=== PATIENT | female | born 1935 | race Caucasian/White ===

== ENCOUNTER 2016-04-10 12:48 | Inpatient (IN) | payer MEDICARE ==
--- NOTE | 2016-04-10 12:54 | ER Document Report ---
ED Medical Screen (RME) - General Stated Complaint: VOMITING Time seen by provider: 12:54 Mode of Arrival: Ambulatory Information source: Patient Notes: 80-year-old female complaining of epigastric abdominal burning pain for 3 days. It is causing her to be nauseous with vomiting. When she would vomit it with ease the pain a little. No history of pancreatitis. She's had appendectomy and cholecystectomy. She seems very uncomfortable. She has some tightness in her lower sternal area after she started vomiting. I have greeted and performed a rapid initial assessment of this patient. A comprehensive ED assessment, evaluation of the patient, analysis of test results , and completion of the medical decision making process will be contacted by additional ED providers. TRAVEL OUTSIDE OF THE [place] IN LAST 30 DAYS: No - Related Data Allergies/Adverse Reactions: No Known Allergies Allergy (Verified 04/10/16 12:58) Past Medical History - Past Medical History Cardiac Medical History: Reports: Hx Coronary Artery Disease, Hx Hypertension Denies: Hx Heart Attack Pulmonary Medical History: Reports: Hx Pneumonia Denies: Hx Asthma, Hx Bronchitis, Hx COPD Neurological Medical History: Denies: Hx Cerebrovascular Accident, Hx Seizures Musculoskeltal Medical History: Reports Hx Arthritis - RA Past Surgical History: Denies: Hx Pacemaker - Immunizations Hx Diphtheria, Pertussis, Tetanus Vaccination: No
[2016-04-10] MEDS ORDERED: ASPIRIN 81 MG TABLET, CHEWABLE PO ONE (12:59)
[2016-04-10] MEDS ORDERED: ONDANSETRON 4 MG TAB.RAPDIS PO ONE (13:01)
[2016-04-10 15:10] LABS: ABSOLUTE BASOPHILS # (AUTO) 0.1 10^3/uL (0.0-0.2); ABSOLUTE LYMPHOCYTES (AUTO) 3.8 10^3/uL (0.5-4.7); ABSOLUTE MONOCYTES (AUTO) 1.2 10^3/uL (0.1-1.4); BASOPHILS % (AUTO) 0.7 % (0-2); EOSINOPHILS % (AUTO) 0.3 % (0-6); HEMATOCRIT 40.8 % (36.0-47.0); HGB HCT DIFFERENCE 1.2; LYMPHOCYTES % (AUTO) 26.7 % (13-45); MEAN CORPUSCULAR HEMOGLOBIN 29.7 pg (27.0-33.4); MEAN CORPUSCULAR HGB CONC 34.2 g/dL (32.0-36.0); MEAN CORPUSCULAR VOLUME 87 fl (80-97); MONOCYTES % (AUTO) 8.3 % (3-13); RED CELL DISTRIBUTION WIDTH 13.5 % (11.5-14.0); WHITE BLOOD COUNT 14.1 10^3/uL (4.0-10.5)
[2016-04-10] MEDS ORDERED: METOCLOPRAMIDE HCL INJ/PF 10 MG/2 ML SDV IV ONE (15:17)
[2016-04-10] MEDS ORDERED: DIPHENHYDRAMINE HCL 50 MG/ML VIAL IV ONE (15:18)
[2016-04-10] MEDS ORDERED: NORMAL SALINE 1000 ML 1,000 ML IV ONE (15:18)
--- NOTE | 2016-04-10 15:18 | EKG REPORT ---
SEVERITY:- OTHERWISE NORMAL ECG - SINUS RHYTHM BORDERLINE RIGHT AXIS DEVIATION : Confirmed by: Miroslava Christy MD 10-Apr-2016 15:17:31
--- NOTE | 2016-04-10 15:18 | ER Document Report ---
ED GI/ - General Mode of Arrival: Ambulatory Information source: Patient TRAVEL OUTSIDE OF THE [place] IN LAST 30 DAYS: No - HPI Patient complains to provider of: Abdominal pain Associated symptoms: Other - See above <DEMETRI ROSALES - Last Filed: 04/10/16 16:20> <TAN BURGOS - Last Filed: 04/10/16 18:03> - General Chief Complaint: Abdominal Pain Stated Complaint: abdominal pain Notes: Patient is an 80 year old female who presents to the emergency department complaining of abdominal pain onset 1 week ago. Patient reports that she had shingles on her left side around and experienced a loss of appetite as well as a constant pain under her left breast bone and beneath her left shoulder blade that has subsided some with time but comes on intermittently and lasts a few minutes, patient states that there is no longer in pain just tightness in that area. Patient then developed her abdominal pain which she describes as a burning sensation which is constant and exacerbated by drinking water. About 3 days ago patient reports she began vomiting clear fluid after eating or drinking anything as well as experiencing diarrhea and nausea. Patient reports that vomiting relieves her abdominal pain for a short period of time. Patient denies blood in vomit, cough, sore throat, difficulty breathing, and burning while urinating. Patient saw her PCP last on 02/08 for her shingles , patient denies getting the shingles shot due to cost. PCP: Dr. Jeannine Vivas (DEMETRI ROSALES) - Related Data Allergies/Adverse Reactions: No Known Allergies Allergy (Verified 04/10/16 12:58) Past Medical History - General Information source: Patient - Social History Smoking Status: Current Every Day Smoker Chew tobacco use (# tins/day): No Frequency of alcohol use: None Drug Abuse: None Family History: Reviewed & Not Pertinent Patient has suicidal ideation: No Patient has homicidal ideation: No - Past Medical History Cardiac Medical History: Reports: Hx Coronary Artery Disease, Hx Hypercholesterolemia, Hx Hypertension Pulmonary Medical History: Reports: Hx Pneumonia Endocrine Medical History: Reports: Hx Diabetes Mellitus Type 2 Musculoskeltal Medical History: Reports Hx Arthritis - RA Past Surgical History: Reports: Hx Appendectomy, Hx Cholecystectomy, Hx Genitourinary Surgery - BLADDER TAC - Immunizations Hx Diphtheria, Pertussis, Tetanus Vaccination: Yes <DEMETRI ROSALES - Last Filed: 04/10/16 16:20> Review of Systems - Review of Systems Constitutional: No symptoms reported EENT: denies: Throat pain Cardiovascular: See HPI, Chest pain - tightness under left breastbone Respiratory: denies: Cough, Short of breath Gastrointestinal: See HPI, Abdominal pain, Diarrhea, Nausea, Vomiting. denies: Blood in vomit Genitourinary: denies: Burning Female Genitourinary: No symptoms reported Musculoskeletal: No symptoms reported Skin: No symptoms reported Hematologic/Lymphatic: No symptoms reported Neurological/Psychological: No symptoms reported -: Yes All other systems reviewed and negative <DEMETRI ROSALES - Last Filed: 04/10/16 16:20> Physical Exam - Vital signs Interpretation: Normal - General General appearance: Appears well - appears well hydrated, Alert - HEENT Head: Normocephalic, Atraumatic - Respiratory Respiratory status: No respiratory distress Chest status: Nontender Breath sounds: Wheezing - scattered Chest palpation: Normal - Cardiovascular Rhythm: Regular Heart sounds: Normal auscultation Murmur: No - Abdominal Inspection: Normal Distension: No distension Bowel sounds: Normal Tenderness: Nontender Organomegaly: No organomegaly - Back Back: Normal, Nontender - Extremities General upper extremity: Normal inspection General lower extremity: Normal inspection. No: Edema - Neurological Neuro grossly intact: Yes Cognition: Normal Orientation: AAOx4 Jordyn Coma Scale Eye Opening: Spontaneous Jordyn Coma Scale Verbal: Oriented Jordyn Coma Scale Motor: Obeys Commands Callands Coma Scale Total: 15 Speech: Normal - Psychological Associated symptoms: Normal affect, Normal mood - Skin Skin irregularity: Rash - faint, flat remnants of shingle rash underneath left arm <DEMETRI ROSALES - Last Filed: 04/10/16 16:20> Course - Laboratory Result Diagrams: 04/10/16 14:55 04/10/16 14:55 <DEMETRI ROSALES - Last Filed: 04/10/16 16:20> - Laboratory Result Diagrams: 04/10/16 14:55 04/10/16 14:55 <TAN BURGOS - Last Filed: 04/10/16 18:03> - Re-evaluation Re-evalutation: 04/10/16 17:53 Patient presented with nausea vomiting diarrhea for the last 3 days. She indicates that she is not on appetite is not able to keep anything down including fluids. She denies any fever. She denies any cough. Patient has been having pain on the left side of her chest and around her shoulder since she had shingles back in January. She said that the pain is constant. Sometimes she gets a sharp stabbing pain. She reports that other times it feels more like a tightness. This is all in the distribution of the shingles. She was not treated for shingles because she could not afford the medication. The patient is afebrile nontoxic appearing. Abdomen is soft and nontender with no peritoneal findings. Her symptoms of nausea vomiting and diarrhea seem most likely related to a viral enteritis. I do not feel CT of the abdomen is warranted as her abdomen is very soft and nontender. The chest pain that she describes has been constant for the last 2 months since she had shingles and unlikely to be related to acute coronary syndrome or other worrisome etiology. Patient is feeling improved after nausea medication and fluids. She indicates that she feels able to go home. She has tolerated fluids here in the emergency department. She's not had any further vomiting or diarrhea since she's been here. She does have a doctor's appointment on Tuesday for regular checkup and she will keep this appointment for follow-up from today's visit. 04/10/16 18:01 (TAN BURGOS) - Vital Signs Vital signs: Temp Pulse Resp BP Pulse Ox 98.1 F 77 12 114/95 H 96 04/10/16 14:12 04/10/16 12:55 04/10/16 14:12 04/10/16 12:55 04/10/16 14:12 (DEMETRI ROSALES) (TAN BURGOS) - Laboratory Laboratory results interpreted by me: 04/10/16 04/10/16 14:55 14:55 WBC 14.1 H Absolute Neutrophils 9.0 H Sodium 122.1 L Chloride 81 L (DEMETRI ROSALES) (TAN BURGOS) - EKG Interpretation by Me Additional EKG results interpreted by me: 04/10/16 17:55 Heart rate 66, normal sinus rhythm, rightward axis, normal intervals, no ST elevations, as interpreted by me. (TAN BURGOS) Discharge <DEMETRI ROSALES - Last Filed: 04/10/16 16:20> <TAN BURGOS - Last Filed: 04/10/16 18:03> - Discharge Condition: Stable Disposition: HOME, SELF-CARE Additional Instructions: Take the Pepcid twice daily as prescribed for the burning sensation you been getting after drinking. Take nausea medication as needed. Drink plenty of fluids to stay well hydrated. Monitor for fevers. Follow-up with her primary provider on Tuesday as already scheduled. Return to ED for chest pain, difficult to breathing, vomiting so not to keep down fluids, or any other worsening or concerning symptoms. Diarrhea Diarrhea means frequent, watery stools. There are many causes. Any problem that keeps the intestinal tract from absorbing water from the stool can lead to diarrhea. A sudden new diarrhea problem is usually caused by a virus, food sensitivity, toxic bacteria, or drugs. In this case, we expect the problem to go away soon. Testing is done only if you seem seriously ill from the diarrhea. If you have chronic diarrhea, or diarrhea that keeps coming back, we need to find out why. Chronic diarrhea can be due to inflammation of the bowels such as Crohn's disease or ulcerative colitis, food sensitivity such as intolerance to lactose or wheat protein, irritable bowel syndrome, and other problems. If your diarrhea is a significant problem but it's not clear why you have it, we' ll refer you to a specialist for further testing. During an episode of diarrhea, drink small amounts (two to six ounces) of clear liquids (soft drinks, sport drinks, herb teas, broth, etc). Take fluids frequently to prevent dehydration. It's usually not a problem to take mild anti- diarrhea medication such as Kaopectate or Pepto-Bismol. As the diarrhea eases, advance to small amounts of bland food (mashed potato, toast) for 24 hours. Call the physician if blood appears in your vomit or stool, if vomiting lasts longer than 24 hours, if the abdominal pain worsens or becomes localized to one area, if you develop high fever, or if you become lightheaded and weak. Vomiting Vomiting can be part of many illnesses. Most cases of vomiting are due to gastroenteritis, usually a viral infection in the intestinal tract. There is no specific treatment. The disease will end by itself. For now, the main danger to your child is dehydration. During the first few hours of the illness, give clear liquids, such as Pedialyte. Try to give small quantities frequently, such as a teaspoon of liquid every minute or about an ounce of fluids every five to ten minutes. Medications may be prescribed by the physician for special cases. After an hour or two of fluids without vomiting, add rice cereal, toast, applesauce, or bananas and other more solid foods to the clear liquids. Call the physician or go to the hospital if vomiting increases or blood appears in the bowel movement or vomitus; if your child fails to improve, or if signs of dehydration occur (no wet diapers for eight to twelve hours, tongue and mouth become dry, not acting as alert as usual). Prescriptions: Famotidine [Pepcid 20 mg Tablet] 20 mg PO BID #12 tablet Ondansetron [Zofran Odt 4 mg Tablet] 1 - 2 tab PO Q4H PRN #15 tab.rapdis PRN Reason: For Nausea/Vomiting Referrals: JEANNINE VIVAS MD [Primary Care Provider] - Follow up as needed Scribe Attestation: 04/10/16 17:58 I personally performed the services described in the documentation, reviewed and edited the documentation which was dictated to the scribe in my presence, and it accurately records my words and actions. (TAN BURGOS) Scribe Documentation - Scribe Written by Italia:: italia Kimble, 04/10/16, 1605 acting as scribe for :: Elkins <DEMETRI ROSALES - Last Filed: 04/10/16 16:20>
[2016-04-10 15:41] LABS: ALANINE AMINOTRANSFERASE 29 U/L (9-52); ALBUMIN 3.8 g/dL (3.5-5.0); ALKALINE PHOSPHATASE 73 U/L (38-126); ANION GAP 12 (5-19); ASPARTATE AMINO TRANSFERASE 19 U/L (14-36); BILIRUBIN,TOTAL 0.8 mg/dL (0.2-1.3); BLOOD UREA NITROGEN 18 mg/dL (7-20); CALCIUM 10.2 mg/dL (8.4-10.2); CARBON DIOXIDE 29 mmol/L (22-30); CHLORIDE 81 mmol/L (98-107); CREATINE KINASE 74 U/L (30-135); CREATININE RESULT 0.67 mg/dL (0.52-1.25); GLUCOSE 107 mg/dL (75-110); LIPASE 41.5 U/L (23-300); POTASSIUM 3.8 mmol/L (3.6-5.0); SODIUM 122.1 mmol/L (137-145); TOTAL PROTEIN 6.8 g/dL (6.3-8.2)
[2016-04-10 15:48] LABS: CREATINE KINASE MB 1.76 ng/mL (<4.55); TROPONIN I 0.021 ng/mL
[2016-04-10 18:38] LABS: APPEARANCE,URINE SLIGHTLY-CLOUDY; BILIRUBIN,URINE NEGATIVE (NEGATIVE); GLUCOSE, URINE NEGATIVE (NEGATIVE); KETONES,URINE TRACE mg/dL (NEGATIVE); LEUKOCYTE ESTERASE,URINE NEGATIVE (NEGATIVE); NITRITE,URINE NEGATIVE (NEGATIVE); PROTEIN,URINE NEGATIVE (NEGATIVE); URINE SPECIFIC GRAVITY 1.008; UROBILINOGEN,URINE NEGATIVE mg/dL (<2.0)
[2016-04-10] MEDS ORDERED: POTASSI CL 20 MEQ/NS 1L 1,000 ML IV PRN (20:45)
[2016-04-10] MEDS ORDERED: DEXTROSE 50%-WATER 25 GM/50 ML DISP.SYRIN IV PRN ×2 (20:45)
[2016-04-10] MEDS ORDERED: DEXTROSE 40% GEL 15 GM TUBE PO PRN ×2 (20:45)
[2016-04-10] MEDS ORDERED: GLUCAGON,HUMAN RECOMB 1 MG INJ IM PRN (20:45)
[2016-04-10] MEDS ORDERED: INSULIN LISPRO 100 UNIT/ML 3 ML VIAL SUBCUT PRN (20:45)
[2016-04-10] MEDS ORDERED: ACETAMINOPHEN 325 MG TABLET PO PRN (21:00)
[2016-04-10] MEDS ORDERED: IPRATROPIUM/ALBUTEROL 0.5-2.5 MG/3 ML AMPUL NEB PRN (21:00)
[2016-04-10] MEDS ORDERED: PROMETHAZINE HCL INJ 25 MG/1 ML VIAL IV PRN (21:03)
--- NOTE | 2016-04-10 21:17 | PDOC H&P ---
History of Present Illness Admission Date/PCP: 04/10/16 19:55 DEIDRE ARELLANO MD Patient complains of: Nausea vomiting and diarrhea History of Present Illness: ALMA WATERS is a 80 year old female with underlying hypertension, mild reflux, arthritis, recent shingles infection involving her left thoracic wall, diet-controlled diabetes mellitus, and partial hearing loss, along with half pack-a-day smoker who presents to the emergency room for evaluation of above complaints. Patient has been discussed with emergency room physician who evaluated the patient. She describes a one-week history of vague upper abdominal discomfort, but primarily a 3 day history of nausea with clear emesis along with diarrhea. Vomiting occurs after virtually any oral intake, including water. Some relief of her abdominal pain with vomiting. Abdominal pain described as a burning sensation. No hematemesis. No recent antibiotic use. No history of C. difficile infection. No unusual oral intake. No friends or family with similar complaints.. Episode of shingles involving her left thoracic wall in January. This has left her with intermittent sharp recurrences of the pain. She is currently resting quietly, pain-free. Initial plans by the emergency room physician were to send the patient home until her labs came back revealing hyponatremia. Laboratory results are listed in [facility] and are reviewed. X-ray summary results are listed below, with full report(s) reviewed. . EKG reviewed. And compared to a tracing from 12/03/2011 Social history/personal habits: . Housewife. 3 sons. Half-pack of cigarettes per day. No alcohol or illicit drug use. Allergies/adverse reactions NKDA. Home medications are reviewed bottle review and discussion with patient and are to be reconciled by nursing staff in [facility]. Home medications initially autopopulated into [facility] may not accurately reflect patient's true medications, dosages, and/or frequencies. REVIEW OF SYSTEMS: Constitutional: No fever or chills. Eyes: Wears glasses. ENT: No swallowing problems or complaints. Partial hearing loss. Pulmonary: No current complaints. Cardiovascular: See history and present illness. Gastrointestinal: See history and present illness. Skin: See history and present illness. Hematologic: Easy bruising. Neurologic: See history and present illness. Musculoskeletal: Joint pain from arthritis. Psychiatric: No current complaints, including anxiety or depression. Endocrine: No current complaints, including polyuria. Genitourinary: No current complaints, including dysuria. PHYSICAL EXAMINATION: Height and weight are incorrect; order has been written to please recheck these. Blood pressure 129/51. Pulse 74 and regular. 98% saturation on room air. Respirations are 12 and unlabored. Temperature 98.1. Well-nourished well-developed elderly female appearing a bit younger than her stated age. Pleasant awake alert and cooperative. Appears to feel perhaps slightly fatigued. Mildly anxious, but without marlene agitation. Skin is warm and dry. No grossly obvious evidence of rash in areas of skin examined. No subcutaneous nodules palpated. ENT: Hearing grossly normal to normal conversation. Tongue midline on protrusion pink and slightly tacky. Eyes: No scleral icterus. Pupils equal and reactive to light at 4 mm. [place] conjunctivae. Neck is supple and nontender to gentle active range of motion and palpation. Midline trachea. No palpable thyroid nodule mass enlargement or tenderness. Lymphatic: No palpable cervical or clavicular nodes. Neck and lymphatic exams limited by patient body habitus. Psychiatric: Reasonable insight into acute and chronic medical issues. Oriented to time location and why here. Lungs: Auscultation reveals clear and equal breath sounds bilaterally. No use of accessory respiratory muscles. Cardiovascular: Heart regular rate and rhythm, without gallop or rub. Subtle early systolic murmur at the cardiac apex. No carotid or abdominal aortic bruits. No ankle or pedal edema. Faintly palpable dorsalis pedis pulses. Abdomen: soft, , nontender with positive bowel sounds. No upper abdominal mass or organomegaly is palpated.. Extremities: Feet are warm and dry. No calf tenderness to compression. No grossly obvious visual evidence of calf swelling. Gentle manipulation of lower extremities fails to reveal any obvious evidence of injury or instability to knees hips or ankles. Neurologic: Moves upper extremities grossly normally. Patellar reflexes absent. Absent Babinski. Light touch is intact at feet. Dorsiflexion and plantarflexion of feet 5 / 5 and symmetric. Past Medical History Cardiac Medical History: Reports: Hyperlipidema, Hypertension Denies: Congestive Heart Failure, DVT, Myocardial Infarction, Pulmonary Embolism Pulmonary Medical History: Reports: Pneumonia Denies: Asthma, Bronchitis, Chronic Obstructive Pulmonary Disease (COPD) EENT Medical History: Reports: Eyes - Glasses, Ears - Partial hearing loss Denies: Throat Neurological Medical History: Denies: Hemorrhagic CVA, Ischemic CVA, Seizures Endocrine Medical History: Reports: Diabetes Mellitus Type 2 - Diet-controlled Denies: Diabetes Mellitus Type 1, Hyperthyroidism, Hypothyroidism Renal/ Medical History: Reports: None GI Medical History: Reports: Gastroesophageal Reflux Disease Denies: Cirrhosis, Hepatitis, Peptic Ulcer Disease Musculoskeltal Medical History: Reports: Arthritis - RA Skin Medical History: Reports: Other - Recent episode of shingles involving her left thoracic wall. Psychiatric Medical History: Reports: Tobacco Dependency Denies: Alcohol Dependency, Depression, General Anxiety Disorder, Substance Abuse Hematology: Reports: Other - Easy bruising. Denies: Anemia Infectious Medical History: Reports: Other - Recent episode of shingles involving her left thoracic wall. Denies: Clostridium Difficile, Hepatitis B, Hepatitis C Past Surgical History Past Surgical History: Reports: Appendectomy, Cholecystectomy Denies: Pacemaker Social History Information Source: Patient, Emergency Med Personnel, [facility] Records Lives with: Spouse/Significant other Smoking Status: Current Every Day Smoker Frequency of Alcohol Use: None Drugs: None - Advance Directive Resuscitation Status: Full Code Surrogate healthcare decision maker:: Family History Family History: Reviewed & Not Pertinent Parental Family History Reviewed: Yes Children Family History Reviewed: Yes Sibling(s) Family History Reviewed.: Yes Medication/Allergy Home Medications: Atenolol/Chlorthalidone [Atenolol-Chlorthalidone 50-25mg Tablet] 0.5 tab PO DAILY 04/11/16 RX: Cilostazol [Pletal 100 mg Tablet] 100 mg PO BID 04/11/16 RX: Lisinopril [Prinivil 5 mg Tablet] 5 mg PO DAILY 04/11/16 Cefuroxime Axetil [Ceftin 250 mg Tablet] 1 tab PO BID #10 tablet 04/12/16 Metoclopramide HCl [Reglan] 5 mg PO Q8HP PRN #3 tablet 04/12/16 Allergies/Adverse Reactions: No Known Allergies Allergy (Verified 04/10/16 12:58) Physical Exam Vital Signs: Temp Pulse Resp BP Pulse Ox 98.1 F 77 18 147/60 H 97 04/10/16 14:12 04/10/16 12:55 04/10/16 19:01 04/10/16 19:00 04/10/16 19:01 Results Impressions: Chest X-Ray 04/10/16 13:00 IMPRESSION: Obstructive lung disease. No acute findings. Assessment & Plan - Diagnosis (1) Hyponatremia Is this a current diagnosis for this admission?: YesPlan: Likely secondary to the vomiting and diarrhea. Normal saline. Serial chemistry. (2) Vomiting and diarrhea Is this a current diagnosis for this admission?: YesPlan: IV fluids. Clear liquids. I have strongly encouraged patient not to get out of bed without notifying staff , to avoid a fall with injury. Knee high SCDs for DVT prophylaxis, along with subcutaneous heparin. Impression and plans were discussed with patient, concurs. Time spent in evaluation and management of patient: 60 minutes. (3) Diabetes mellitus type 2 in nonobese Is this a current diagnosis for this admission?: YesPlan: Diet-controlled. Accu-Cheks. Appropriate sliding scale coverage. (4) HTN (hypertension) Qualifiers: Hypertension type: essential hypertension Qualified Code(s): I10 - Essential (primary) hypertension Is this a current diagnosis for this admission?: YesPlan: Resume home medications as appropriate once these have been reviewed. (5) Tobacco dependency Is this a current diagnosis for this admission?: YesPlan: When necessary nicotine patch.
[2016-04-10 21:28] LABS: ANION GAP 10 (5-19); BLOOD UREA NITROGEN 14 mg/dL (7-20); CALCIUM 9.8 mg/dL (8.4-10.2); CARBON DIOXIDE 30 mmol/L (22-30); CHLORIDE 86 mmol/L (98-107); CREATININE RESULT 0.75 mg/dL (0.52-1.25); GLUCOSE 94 mg/dL (75-110); MAGNESIUM 1.5 mg/dL (1.6-2.3); POTASSIUM 3.7 mmol/L (3.6-5.0)
[2016-04-10] MEDS: HEPARIN SOD (PORCINE) 5,000 UNIT/ML 1 ML SYRINGE SUBCUT SCH (22:10)
[2016-04-10] MEDS: NICOTINE 14 MG/24 HR PATCH.TD24 TD PRN (22:10)
[2016-04-10] MEDS ORDERED: POTASSI CL 20 MEQ/D5-1/2NS 1L 1,000 ML IV PRN (23:09)
[2016-04-10] MEDS: MAGNESIUM SULFATE/D5W 1 GM/100 ML RTUPB IV SCH (23:34)
[2016-04-11] MEDS: MAGNESIUM SULFATE/D5W 1 GM/100 ML RTUPB IV SCH (00:42)
[2016-04-11 03:31] LABS: ANION GAP 8 (5-19); BLOOD UREA NITROGEN 14 mg/dL (7-20); CALCIUM 9.4 mg/dL (8.4-10.2); CARBON DIOXIDE 29 mmol/L (22-30); CHLORIDE 89 mmol/L (98-107); CREATININE RESULT 0.73 mg/dL (0.52-1.25); GLUCOSE 118 mg/dL (75-110); POTASSIUM 3.2 mmol/L (3.6-5.0); SODIUM 126.4 mmol/L (137-145)
[2016-04-11] MEDS: POTASSI CL 20 MEQ/50 ML RIDER 20 MEQ/50 ML RTUPB IV SCH ×2 (05:13→08:51)
[2016-04-11] MEDS ORDERED: ONDANSETRON HCL INJ/PF 4 MG/2 ML SDV IV PRN (07:29)
[2016-04-11 08:32] LABS: ANION GAP 9 (5-19); BLOOD UREA NITROGEN 19 mg/dL (7-20); CARBON DIOXIDE 27 mmol/L (22-30); CHLORIDE 92 mmol/L (98-107); CREATININE RESULT 0.59 mg/dL (0.52-1.25); GLUCOSE 103 mg/dL (75-110); POTASSIUM 3.7 mmol/L (3.6-5.0); SODIUM 128.2 mmol/L (137-145)
[2016-04-11] MEDS: HEPARIN SOD (PORCINE) 5,000 UNIT/ML 1 ML SYRINGE SUBCUT SCH ×2 (11:45→21:56)
[2016-04-11] MEDS ORDERED: LANSOPRAZOLE 30 MG TAB.RAP.DR PO SCH (12:30)
[2016-04-11] MEDS ORDERED: LANSOPRAZOLE 30 MG TAB.RAP.DR PO ONE (13:00)
[2016-04-11 13:19] LABS: ANION GAP 9 (5-19); BLOOD UREA NITROGEN 35 mg/dL (7-20); CALCIUM 9.1 mg/dL (8.4-10.2); CARBON DIOXIDE 33 mmol/L (22-30); CHLORIDE 90 mmol/L (98-107); CREATININE RESULT 0.73 mg/dL (0.52-1.25); GLUCOSE 131 mg/dL (75-110); POTASSIUM 3.7 mmol/L (3.6-5.0); SODIUM 131.6 mmol/L (137-145)
[2016-04-11] MEDS ORDERED: METOCLOPRAMIDE HCL INJ/PF 10 MG/2 ML SDV IV ONE (14:00)
--- NOTE | 2016-04-11 15:04 | PDOC PROGRESS REPORT ---
Subjective Progress Note for:: 04/11/16 Subjective:: The patient was seen earlier today on rounds. The patient states that she feels overall much improved in comparison to when she came in. Patient is actually ate to breakfast trays. The patient denied any nausea, vomiting, diarrhea, shortness of breath, dizziness, chest pain, heart palpitations, fevers , or chills. The patient has remained afebrile. Blood pressures have been in a good range. When prompted the patient voices no other concerns at this time. Review of systems: The rest of the review of systems is negative. Addendum: Was notified by nursing staff that the patient was once again nauseous and felt that she was having significant heartburn. The patient did not respond to PPI therapy. The patient felt that she was achy and that she may again start vomiting. The patient's discharge was deferred for now. Physical Exam Vital Signs: Temp Pulse Resp BP Pulse Ox 97.9 F 92 16 108/49 L 95 04/11/16 11:31 04/11/16 13:47 04/11/16 13:47 04/11/16 11:31 04/11/16 13:47 General appearance: PRESENT: no acute distress, cooperative, well-developed, well-nourished Head exam: PRESENT: atraumatic, normocephalic Eye exam: PRESENT: conjunctiva pink, EOMI, PERRLA. ABSENT: scleral icterus Ear exam: PRESENT: normal external ear exam Mouth exam: PRESENT: moist, tongue midline Neck exam: ABSENT: carotid bruit, JVD, lymphadenopathy, thyromegaly Respiratory exam: PRESENT: clear to auscultation lucas, symmetrical, unlabored. ABSENT: rales, rhonchi, tachypnea, wheezes Cardiovascular exam: PRESENT: RRR. ABSENT: diastolic murmur, rubs, systolic murmur Pulses: PRESENT: normal dorsalis pedis pul Vascular exam: PRESENT: normal capillary refill GI/Abdominal exam: PRESENT: normal bowel sounds, soft. ABSENT: distended, guarding, mass, organolmegaly, rebound, tenderness Rectal exam: PRESENT: deferred Extremities exam: PRESENT: full ROM. ABSENT: calf tenderness, clubbing, pedal edema Neurological exam: PRESENT: alert, awake, oriented to person, oriented to place , oriented to time, oriented to situation, CN II-XII grossly intact. ABSENT: motor sensory deficit Psychiatric exam: PRESENT: appropriate affect, normal mood. ABSENT: homicidal ideation, suicidal ideation Skin exam: PRESENT: dry, intact, warm. ABSENT: cyanosis, rash Results Laboratory Results: Labs- Last Values WBC 14.1 10^3/uL (4.0-10.5) H 04/10/16 14:55 RBC 4.70 10^6/uL (3.72-5.28) 04/10/16 14:55 Hgb 14.0 g/dL (12.0-15.5) 04/10/16 14:55 Hct 40.8 % (36.0-47.0) 04/10/16 14:55 MCV 87 fl (80-97) 04/10/16 14:55 MCH 29.7 pg (27.0-33.4) 04/10/16 14:55 MCHC 34.2 g/dL (32.0-36.0) 04/10/16 14:55 RDW 13.5 % (11.5-14.0) 04/10/16 14:55 Plt Count 365 10^3/uL (150-450) 04/10/16 14:55 Seg Neutrophils % 64.0 % (42-78) 04/10/16 14:55 Lymphocytes % 26.7 % (13-45) 04/10/16 14:55 Monocytes % 8.3 % (3-13) 04/10/16 14:55 Eosinophils % 0.3 % (0-6) 04/10/16 14:55 Basophils % 0.7 % (0-2) 04/10/16 14:55 Absolute Neutrophils 9.0 10^3/uL (1.7-8.2) H 04/10/16 14:55 Absolute Lymphocytes 3.8 10^3/uL (0.5-4.7) 04/10/16 14:55 Absolute Monocytes 1.2 10^3/uL (0.1-1.4) 04/10/16 14:55 Absolute Eosinophils 0.0 10^3/uL (0.0-0.6) 04/10/16 14:55 Absolute Basophils 0.1 10^3/uL (0.0-0.2) 04/10/16 14:55 Sodium 131.6 mmol/L (137-145) L 04/11/16 12:47 Potassium 3.7 mmol/L (3.6-5.0) 04/11/16 12:47 Chloride 90 mmol/L (98-107) L 04/11/16 12:47 Carbon Dioxide 33 mmol/L (22-30) H 04/11/16 12:47 Anion Gap 9 (5-19) 04/11/16 12:47 BUN 35 mg/dL (7-20) H 04/11/16 12:47 Creatinine 0.73 mg/dL (0.52-1.25) 04/11/16 12:47 Est GFR ( Amer) > 60 (>60) 04/11/16 12:47 Est GFR (Non-Af Amer) > 60 (>60) 04/11/16 12:47 Glucose 131 mg/dL (75-110) H 04/11/16 12:47 POC Glucose 131 mg/dL (70-110) H 04/11/16 11:28 Calcium 9.1 mg/dL (8.4-10.2) 04/11/16 12:47 Magnesium 1.5 mg/dL (1.6-2.3) L 04/10/16 21:01 Total Bilirubin 0.8 mg/dL (0.2-1.3) 04/10/16 14:55 Direct Bilirubin 0.0 mg/dL (0.0-0.3) 04/10/16 14:55 AST 19 U/L (14-36) 04/10/16 14:55 ALT 29 U/L (9-52) 04/10/16 14:55 Alkaline Phosphatase 73 U/L (38-126) 04/10/16 14:55 Creatine Kinase 74 U/L (30-135) 04/10/16 14:55 CK-MB (CK-2) 1.76 ng/mL (<4.55) 04/10/16 14:55 Troponin I 0.021 ng/mL 04/10/16 14:55 Total Protein 6.8 g/dL (6.3-8.2) 04/10/16 14:55 Albumin 3.8 g/dL (3.5-5.0) 04/10/16 14:55 Lipase 41.5 U/L (23-300) 04/10/16 14:55 Urine Color YELLOW 04/10/16 17:00 Urine Appearance SLIGHTLY-CLOUDY 04/10/16 17:00 Urine pH 6.0 (5.0-9.0) 04/10/16 17:00 Ur Specific [place] 1.008 04/10/16 17:00 Urine Protein NEGATIVE mg/dL (NEGATIVE) 04/10/16 17:00 Urine Glucose (UA) NEGATIVE mg/dL (NEGATIVE) 04/10/16 17:00 Urine Ketones TRACE mg/dL (NEGATIVE) H 04/10/16 17:00 Urine Blood NEGATIVE (NEGATIVE) 04/10/16 17:00 Urine Nitrite NEGATIVE (NEGATIVE) 04/10/16 17:00 Urine Bilirubin NEGATIVE (NEGATIVE) 04/10/16 17:00 Urine Urobilinogen NEGATIVE mg/dL (<2.0) 04/10/16 17:00 Ur Leukocyte Esterase NEGATIVE (NEGATIVE) 04/10/16 17:00 Urine WBC (Auto) 1 /HPF 04/10/16 17:00 Urine RBC (Auto) 0 /HPF 04/10/16 17:00 U Hyaline Cast (Auto) 2 /LPF 04/10/16 17:00 Urine Bacteria (Auto) TRACE /HPF 04/10/16 17:00 Squamous Epi Cells Auto 1 /HPF 04/10/16 17:00 Urine Mucus (Auto) RARE /LPF 04/10/16 17:00 Urine Ascorbic Acid NEGATIVE (NEGATIVE) 04/10/16 17:00 Impressions: Chest X-Ray 04/10/16 13:00 IMPRESSION: Obstructive lung disease. No acute findings. Assessment & Plan - Diagnosis (1) Acute gastroenteritis Is this a current diagnosis for this admission?: YesPlan: Symptoms had improved however it appears a recurred. Will continue to hydrate and when necessary anti-medics. (2) Hyponatremia Is this a current diagnosis for this admission?: YesPlan: Secondary to #1. Will continue to hydrate. This is acute and therefore can be replaced at a rapid rate. (3) Diabetes mellitus type 2 in nonobese Is this a current diagnosis for this admission?: YesPlan: Will continue sliding scale coverage for now will defer any basal dosage given the patient's uncertain intake. (4) HTN (hypertension) Qualifiers: Hypertension type: essential hypertension Qualified Code(s): I10 - Essential (primary) hypertension Is this a current diagnosis for this admission?: YesPlan: Continue to hold the patient's home medications for now (5) Tobacco dependency Is this a current diagnosis for this admission?: YesPlan: Spent 3 minutes discussing smoking cessation education. The patient declines any pharmacological intervention at this time however will add a PRN nicotine patch. - Time Time Spent with patient: on this visit including assessment, plan, physical examination, family meeting, and specialty collaboration, and patient education is 35 minutes. Time Spent with patient: 35 or more minutes Medications reviewed and adjusted accordingly: Yes Anticipated discharge: Home Within: within 24 hours Disposition: The patient is a full code. Pending patient's symptomatology and diagnostic findings will reevaluate in the a.m. - Inpatient Certification Based on my medical assessment, after consideration of the patient's comorbidities, presenting symptoms, or acuity I expect that the services needed warrant INPATIENT care.: Yes I certify that my determination is in accordance with my understanding of Medicare's requirements for reasonable and necessary INPATIENT services [42 CFR 412.3e].: Yes Medical Necessity: Failure to Improve With Outpatient Therapy, Need For IV Fluids, Need For Continuous Telemetry Monitoring, Risk of Complication if Not Cared For in Hospital Post Hospital Care: D/C or Transfer Summary
[2016-04-11] MEDS: NORMAL SALINE 1000 ML 1,000 ML IV PRN (21:56)
[2016-04-11] MEDS: NICOTINE 14 MG/24 HR PATCH.TD24 TD PRN (21:56)
[2016-04-12] MEDS ORDERED: LANSOPRAZOLE 30 MG TAB.RAP.DR PO SCH (08:00)
[2016-04-12] MEDS: HEPARIN SOD (PORCINE) 5,000 UNIT/ML 1 ML SYRINGE SUBCUT SCH (10:04)
[2016-04-12] MEDS: NORMAL SALINE 1000 ML 1,000 ML IV PRN (10:05)
[2016-04-12 12:58] VITALS: BP 138/55
--- NOTE | 2016-04-12 16:59 | PDOC DISCHARGE SUMMARY ---
General - Admit/Disc Date/PCP Admission Date/Primary Care Provider: 04/11/16 14:07 DEIDRE ARELLANO MD Discharge Date: 04/12/16 - Discharge Diagnosis (1) Acute gastroenteritis Is this a current diagnosis for this admission?: Yes (2) Escherichia coli urinary tract infection Is this a current diagnosis for this admission?: Yes (3) Hyponatremia Is this a current diagnosis for this admission?: Yes (4) Diabetes mellitus type 2 in nonobese Is this a current diagnosis for this admission?: Yes (5) HTN (hypertension) Is this a current diagnosis for this admission?: Yes (6) Tobacco dependency Is this a current diagnosis for this admission?: Yes - Additional Information Resuscitation Status: Full Code Discharge Diet: As Tolerated, Regular Discharge Activity: Activity As Tolerated Home Medications: Atenolol/Chlorthalidone [Atenolol-Chlorthalidone 50-25mg Tablet] 0.5 tab PO DAILY 04/11/16 Cilostazol [Pletal 100 mg Tablet] 100 mg PO BID 04/11/16 Lisinopril [Prinivil 5 mg Tablet] 5 mg PO DAILY 04/11/16 Metoclopramide HCl [Reglan] 5 mg PO Q8HP PRN #3 tablet 04/12/16 History of Present Illness Patient complains of: Nausea and vomiting History of Present Illness: ALMA WATERS is a 80 year old female with underlying hypertension, mild reflux, arthritis, recent shingles infecting her left thoracic wall, diet- controlled diabetes mellitus, and partial hearing loss, along with half pack-a- day smoker who presents to the emergency room for evaluation of above complaints. She describes a one-week history of vague upper abdominal discomfort , but primarily a 3 day history of nausea with clear emesis along with diarrhea. Vomiting occurs after virtually any oral intake, including water. Some relief of her abdominal pain with vomiting. Abdominal pain described as a burning sensation. No hematemesis. No recent antibiotic use. No history of C. difficile infection. No unusual oral intake. No friends or family with similar complaints.. Episode of shingles involving her left thoracic wall in January. This has left her with intermittent sharp recurrences of the pain. Initial plans by the emergency room physician were to send the patient home until her labs came back revealing hyponatremia. Hospital Course Hospital Course: The patient was admitted to a continuous telemetry unit. The patient maintained NPO status and aggressively hydrated. In the morning after admission the patient had a significant appetite and actually ate to breakfast trays. Her soon after that the patient became nauseous and got benefit with Reglan. Throughout the day the patient's symptoms did resolve and the patient was able to tolerate breakfast. Patient's sodium normalized with oral intake and IV fluids. The patient's symptoms of abdominal pain, nausea, or vomiting were managed with appropriate analgesia and/or antiemetic. The patient is now able to maintain hydration. Physical Exam Vital Signs: Temp Pulse Resp BP Pulse Ox 97.7 F 68 16 128/58 H 96 04/12/16 12:32 04/12/16 12:32 04/12/16 12:32 04/12/16 12:32 04/12/16 12:32 Intake & Output 04/10/16 04/11/16 04/12/16 23:59 23:59 23:59 Intake Total 150 460 Output Total 850 1000 Balance -700 -540 General appearance: PRESENT: no acute distress, cooperative, well-developed, well-nourished Head exam: PRESENT: atraumatic, normocephalic Eye exam: PRESENT: conjunctiva pink, EOMI, PERRLA. ABSENT: scleral icterus Ear exam: PRESENT: normal external ear exam Mouth exam: PRESENT: moist, tongue midline Neck exam: ABSENT: carotid bruit, JVD, lymphadenopathy, thyromegaly Respiratory exam: PRESENT: clear to auscultation lucas, symmetrical, unlabored. ABSENT: rales, rhonchi, tachypnea, wheezes Cardiovascular exam: PRESENT: RRR. ABSENT: diastolic murmur, rubs, systolic murmur Pulses: PRESENT: normal dorsalis pedis pul Vascular exam: PRESENT: normal capillary refill GI/Abdominal exam: PRESENT: normal bowel sounds, soft. ABSENT: distended, guarding, mass, organolmegaly, rebound, tenderness Rectal exam: PRESENT: deferred Extremities exam: PRESENT: full ROM. ABSENT: calf tenderness, clubbing, pedal edema Neurological exam: PRESENT: alert, awake, oriented to person, oriented to place , oriented to time, oriented to situation, CN II-XII grossly intact. ABSENT: motor sensory deficit Psychiatric exam: PRESENT: appropriate affect, normal mood. ABSENT: homicidal ideation, suicidal ideation Skin exam: PRESENT: dry, intact, warm. ABSENT: cyanosis, rash Results Laboratory Results: Labs- Last Values WBC 14.1 10^3/uL (4.0-10.5) H 04/10/16 14:55 RBC 4.70 10^6/uL (3.72-5.28) 04/10/16 14:55 Hgb 14.0 g/dL (12.0-15.5) 04/10/16 14:55 Hct 40.8 % (36.0-47.0) 04/10/16 14:55 MCV 87 fl (80-97) 04/10/16 14:55 MCH 29.7 pg (27.0-33.4) 04/10/16 14:55 MCHC 34.2 g/dL (32.0-36.0) 04/10/16 14:55 RDW 13.5 % (11.5-14.0) 04/10/16 14:55 Plt Count 365 10^3/uL (150-450) 04/10/16 14:55 Seg Neutrophils % 64.0 % (42-78) 04/10/16 14:55 Lymphocytes % 26.7 % (13-45) 04/10/16 14:55 Monocytes % 8.3 % (3-13) 04/10/16 14:55 Eosinophils % 0.3 % (0-6) 04/10/16 14:55 Basophils % 0.7 % (0-2) 04/10/16 14:55 Absolute Neutrophils 9.0 10^3/uL (1.7-8.2) H 04/10/16 14:55 Absolute Lymphocytes 3.8 10^3/uL (0.5-4.7) 04/10/16 14:55 Absolute Monocytes 1.2 10^3/uL (0.1-1.4) 04/10/16 14:55 Absolute Eosinophils 0.0 10^3/uL (0.0-0.6) 04/10/16 14:55 Absolute Basophils 0.1 10^3/uL (0.0-0.2) 04/10/16 14:55 Sodium 131.6 mmol/L (137-145) L 04/11/16 12:47 Potassium 3.7 mmol/L (3.6-5.0) 04/11/16 12:47 Chloride 90 mmol/L (98-107) L 04/11/16 12:47 Carbon Dioxide 33 mmol/L (22-30) H 04/11/16 12:47 Anion Gap 9 (5-19) 04/11/16 12:47 BUN 35 mg/dL (7-20) H 04/11/16 12:47 Creatinine 0.73 mg/dL (0.52-1.25) 04/11/16 12:47 Est GFR ( Amer) > 60 (>60) 04/11/16 12:47 Est GFR (Non-Af Amer) > 60 (>60) 04/11/16 12:47 Glucose 131 mg/dL (75-110) H 04/11/16 12:47 POC Glucose 143 mg/dL (70-110) H 04/12/16 11:21 Calcium 9.1 mg/dL (8.4-10.2) 04/11/16 12:47 Magnesium 1.5 mg/dL (1.6-2.3) L 04/10/16 21:01 Total Bilirubin 0.8 mg/dL (0.2-1.3) 04/10/16 14:55 Direct Bilirubin 0.0 mg/dL (0.0-0.3) 04/10/16 14:55 AST 19 U/L (14-36) 04/10/16 14:55 ALT 29 U/L (9-52) 04/10/16 14:55 Alkaline Phosphatase 73 U/L (38-126) 04/10/16 14:55 Creatine Kinase 74 U/L (30-135) 04/10/16 14:55 CK-MB (CK-2) 1.76 ng/mL (<4.55) 04/10/16 14:55 Troponin I 0.021 ng/mL 04/10/16 14:55 Total Protein 6.8 g/dL (6.3-8.2) 04/10/16 14:55 Albumin 3.8 g/dL (3.5-5.0) 04/10/16 14:55 Lipase 41.5 U/L (23-300) 04/10/16 14:55 Urine Color YELLOW 04/10/16 17:00 Urine Appearance SLIGHTLY-CLOUDY 04/10/16 17:00 Urine pH 6.0 (5.0-9.0) 04/10/16 17:00 Ur Specific [place] 1.008 04/10/16 17:00 Urine Protein NEGATIVE mg/dL (NEGATIVE) 04/10/16 17:00 Urine Glucose (UA) NEGATIVE mg/dL (NEGATIVE) 04/10/16 17:00 Urine Ketones TRACE mg/dL (NEGATIVE) H 04/10/16 17:00 Urine Blood NEGATIVE (NEGATIVE) 04/10/16 17:00 Urine Nitrite NEGATIVE (NEGATIVE) 04/10/16 17:00 Urine Bilirubin NEGATIVE (NEGATIVE) 04/10/16 17:00 Urine Urobilinogen NEGATIVE mg/dL (<2.0) 04/10/16 17:00 Ur Leukocyte Esterase NEGATIVE (NEGATIVE) 04/10/16 17:00 Urine WBC (Auto) 1 /HPF 04/10/16 17:00 Urine RBC (Auto) 0 /HPF 04/10/16 17:00 U Hyaline Cast (Auto) 2 /LPF 04/10/16 17:00 Urine Bacteria (Auto) TRACE /HPF 04/10/16 17:00 Squamous Epi Cells Auto 1 /HPF 04/10/16 17:00 Urine Mucus (Auto) RARE /LPF 04/10/16 17:00 Urine Ascorbic Acid NEGATIVE (NEGATIVE) 04/10/16 17:00 Impressions: Chest X-Ray 04/10/16 13:00 IMPRESSION: Obstructive lung disease. No acute findings. Qualifiers PATEINT BEING DISCHARGED WITH ANY OF THE FOLLOWING DIAGNOSIS?: No Plan Discharge Plan: The patient is a follow with her primary care provider within one week for hospital follow-up. Time Spent: Less than 30 Minutes
== END 2016-04-12 13:15 | disposition home or self-care (01) | DRG 392 ==
LOC: ER 12:48 → EH 19:55 → UNDOADMOB 19:55 → EH 21:00 → 5 23:14 → OBSVTOIN 04-11 14:07
PROVIDERS: ADMIT Family Medicine; ATTEND Family Medicine
DX: K52.9 Noninfective gastroenteritis and colitis, unspecified (principal); E87.1 Hypo-osmolality and hyponatremia; N39.0 Urinary tract infection, site not specified; E86.0 Dehydration; B96.20 Unspecified Escherichia coli [E. coli] as the cause of diseases classified elsewhere; I10 Essential (primary) hypertension; E78.5 Hyperlipidemia, unspecified; K21.9 Gastro-esophageal reflux disease without esophagitis; M19.90 Unspecified osteoarthritis, unspecified site; E11.9 Type 2 diabetes mellitus without complications; F17.210 Nicotine dependence, cigarettes, uncomplicated; H91.90 Unspecified hearing loss, unspecified ear; Z90.49 Acquired absence of other specified parts of digestive tract; Z90.710 Acquired absence of both cervix and uterus
CPT/HCPCS: 36415; 71010; 80048; 80053; 81001; 82550; 82553; 82962; 83690; 83735; 84484; 85025; 87086; 87088; 87186; 93005; 93010; 96360; 96372; 99285; G0378; J1200; J1644; J2765; J3475; J3480; J7030; S0119

== ENCOUNTER 2016-04-16 15:47 | Emergency (ER) | payer MEDICARE ==
[2016-04-16] MEDS ORDERED: PANTOPRAZOLE SODIUM 40 MG VIAL IV ONE (15:50)
[2016-04-16] MEDS ORDERED: ERTAPENEM SODIUM INJ 1 GM VIAL IV ONE (15:50)
[2016-04-16] MEDS ORDERED: NORMAL SALINE 1000 ML 1,000 ML IV ONE (16:20)
[2016-04-16 16:46] LABS: ABSOLUTE BASOPHILS # (AUTO) 0.1 10^3/uL (0.0-0.2); ABSOLUTE EOSINOPHILS # (AUTO) 0.1 10^3/uL (0.0-0.6); ABSOLUTE LYMPHOCYTES (AUTO) 4.1 10^3/uL (0.5-4.7); ABSOLUTE MONOCYTES (AUTO) 0.8 10^3/uL (0.1-1.4); ABSOLUTE NEUT (AUTO) 7.7 10^3/uL (1.7-8.2); BASOPHILS % (AUTO) 0.8 % (0-2); EOSINOPHILS % (AUTO) 1.1 % (0-6); HEMATOCRIT 29.6 % (36.0-47.0); HEMOGLOBIN 10.1 g/dL (12.0-15.5); HGB HCT DIFFERENCE 0.7; LYMPHOCYTES % (AUTO) 31.7 % (13-45); MEAN CORPUSCULAR HEMOGLOBIN 30.4 pg (27.0-33.4); MEAN CORPUSCULAR HGB CONC 34.1 g/dL (32.0-36.0); MEAN CORPUSCULAR VOLUME 89 fl (80-97); MONOCYTES % (AUTO) 6.1 % (3-13); RED BLOOD COUNT 3.32 10^6/uL (3.72-5.28); RED CELL DISTRIBUTION WIDTH 13.9 % (11.5-14.0); SEGMENTED NEUTROPHILS % (AUTO) 60.3 % (42-78); WHITE BLOOD COUNT 12.9 10^3/uL (4.0-10.5)
[2016-04-16] MEDS ORDERED: METRONIDAZOLE 500 MG/NS RTU 100 ML IV ONE (16:51)
[2016-04-16 16:59] LABS: PARTIAL THROMBOPLASTIN TIME 26.1 SEC (23.5-35.8); PROTHROMBIN TIME 12.7 SEC (11.4-15.4)
[2016-04-16 17:05] LABS: ALANINE AMINOTRANSFERASE 27 U/L (9-52); ALBUMIN 3.6 g/dL (3.5-5.0); ALKALINE PHOSPHATASE 68 U/L (38-126); ANION GAP 10 (5-19); ASPARTATE AMINO TRANSFERASE 13 U/L (14-36); BILIRUBIN,TOTAL 0.5 mg/dL (0.2-1.3); BLOOD UREA NITROGEN 11 mg/dL (7-20); CALCIUM 10.2 mg/dL (8.4-10.2); CARBON DIOXIDE 28 mmol/L (22-30); CHLORIDE 96 mmol/L (98-107); CREATININE RESULT 0.75 mg/dL (0.52-1.25); GLUCOSE 119 mg/dL (75-110); LIPASE 34.6 U/L (23-300); MAGNESIUM 1.8 mg/dL (1.6-2.3); POTASSIUM 3.7 mmol/L (3.6-5.0); SODIUM 133.7 mmol/L (137-145)
[2016-04-16] MEDS ORDERED: PANTOPRAZOLE SODIUM 40 MG VIAL IV PRN (17:26)
--- NOTE | 2016-04-16 18:57 | ER Document Report ---
ED General - General Chief Complaint: Abdominal Pain Stated Complaint: ABDOMINAL PAIN TRAVEL OUTSIDE OF THE [place] IN LAST 30 DAYS: No - HPI Patient complains to provider of: upper abdominal pain Notes: Patient coming in for evaluation of upper abdominal pain. Patient had an outpatient CT scan performed with IV contrast showing a pyloric pain stool ulcer a possible impending perforation due to surrounding inflammatory changes. Patient was referred to the ER from outpatient CT scan for further evaluation. Otherwise patient states pain ongoing for over a week. Patient states has a history possibly of ulcers but never had a scope performed. Patient is currently on omeprazole. Patient denies any fevers chills nausea vomiting diarrhea. Patient denies any dark or bloody stools. Patient denies dizziness or headaches. Patient is a smoker also has a history diabetes and hypertension. - Related Data Allergies/Adverse Reactions: No Known Allergies Allergy (Verified 04/10/16 12:58) Past Medical History - Social History Smoking Status: Unknown if Ever Smoked Family History: Reviewed & Not Pertinent - Past Medical History Cardiac Medical History: Reports: Hx Coronary Artery Disease, Hx Hypercholesterolemia, Hx Hypertension Denies: Hx Congestive Heart Failure, Hx DVT, Hx Heart Attack, Hx Pulmonary Embolism Pulmonary Medical History: Reports: Hx Pneumonia Denies: Hx Asthma, Hx Bronchitis, Hx COPD Neurological Medical History: Denies: Hx Cerebrovascular Accident, Hx Seizures Endocrine Medical History: Reports: Hx Diabetes Mellitus Type 2 - Diet- controlled. Denies: Hx Diabetes Mellitus Type 1, Hx Hyperthyroidism, Hx Hypothyroidism Renal/ Medical History: Denies: Hx Peritoneal Dialysis GI Medical History: Reports: Hx Gastroesophageal Reflux Disease. Denies: Hx Cirrhosis, Hx Hepatitis Musculoskeltal Medical History: Reports Hx Arthritis Psychiatric Medical History: Denies: Hx Depression Infectious Medical History: Denies: Hx C-Diff, Hx Hepatitis Past Surgical History: Reports: Hx Appendectomy, Hx Cholecystectomy, Hx Genitourinary Surgery - BLADDER TAC. Denies: Hx Pacemaker - Immunizations Hx Diphtheria, Pertussis, Tetanus Vaccination: Yes Review of Systems - Review of Systems Constitutional: No symptoms reported EENT: No symptoms reported Cardiovascular: No symptoms reported Respiratory: No symptoms reported Gastrointestinal: Abdominal pain Genitourinary: No symptoms reported Female Genitourinary: No symptoms reported Musculoskeletal: No symptoms reported Skin: No symptoms reported Hematologic/Lymphatic: No symptoms reported Neurological/Psychological: No symptoms reported -: Yes All other systems reviewed and negative Physical Exam - Vital signs Vitals: Resp Pulse Ox 14 99 04/16/16 16:35 04/16/16 16:35 Interpretation: Normal - General General appearance: Appears well, Alert - HEENT Head: Normocephalic, Atraumatic Eyes: Normal Pupils: PERRL - Respiratory Respiratory status: No respiratory distress Chest status: Nontender Breath sounds: Normal Chest palpation: Normal - Cardiovascular Rhythm: Regular Heart sounds: Normal auscultation Murmur: No - Abdominal Inspection: Normal Distension: No distension Bowel sounds: Normal Tenderness: Tender - Mild epigastric tenderness. No: McBurney's point, Clifton' s sign, Guarding, Rebound Organomegaly: No organomegaly - Back Back: Normal, Nontender - Extremities General upper extremity: Normal inspection, Nontender, Normal color, Normal ROM , Normal temperature General lower extremity: Normal inspection, Nontender, Normal color, Normal ROM , Normal temperature, Normal weight bearing. No: Penny's sign - Neurological Neuro grossly intact: Yes Cognition: Normal Orientation: AAOx4 Jordyn Coma Scale Eye Opening: Spontaneous [place] Coma Scale Verbal: Oriented Jordyn Coma Scale Motor: Obeys Commands [place] Coma Scale Total: 15 Speech: Normal Motor strength normal: LUE, RUE, LLE, RLE Sensory: Normal - Psychological Associated symptoms: Normal affect, Normal mood - Skin Skin Temperature: Warm Skin Moisture: Dry Skin Color: Normal Course - Re-evaluation Re-evalutation: 04/16/16 18:55 Patient coming in after outpatient CT scan showing possible impending stomach perforation. Patient was started on Protonix also was given Invanz and Flagyl for antibiotic coverage. Cultures were obtained. Concerning laboratory findings patient recently had a hemoglobin for now is 14 patient is at 10 today with a dropped 4 g. Patient otherwise has stable vital signs. Initially discussed with family requesting to go to [facility]. In discussing the transfer team suspects in 8-12 hour wait for the patient would be able to be transferred. Discuss transfer again with family states that they're now okay try [place] or [facility]. Patient case was discussed with a Dr. Gauthier at and was also accepted however before transfer divided patient was accepted and had a bed at [facility]. Family states that they would rather go to [facility]. Patient was accepted by Dr. Mullen. Transferred in stable condition. - Vital Signs Vital signs: Temp Pulse Resp BP Pulse Ox 98.3 F 71 14 145/49 H 98 04/16/16 19:51 04/16/16 19:51 04/16/16 19:51 04/16/16 19:51 04/16/16 19:51 - Laboratory Result Diagrams: 04/16/16 16:20 04/16/16 16:20 Laboratory results interpreted by me: 04/16/16 04/16/16 04/16/16 16:20 16:20 18:56 WBC 12.9 H RBC 3.32 L Hgb 10.1 L Hct 29.6 L Sodium 133.7 L Chloride 96 L Glucose 119 H AST 13 L Total Protein 6.0 L Urine Nitrite POSITIVE H Critical Care Note - Critical Care Note Total time excluding time spent on procedures (mins): 40 Comments: Multiple evaluations possible severe stomach ucler impending perforation Discharge - Discharge Clinical Impression: Tobacco dependency, stomach ulcer concern for perforation HTN (hypertension) Qualifiers: Hypertension type: essential hypertension Qualified Code(s): I10 - Essential ( primary) hypertension Disposition: [facility] Referrals: DEIDRE ARELLANO MD [Primary Care Provider] - Follow up as needed
[2016-04-16 19:51] VITALS: BP 145/49
[2016-04-16 20:17] LABS: APPEARANCE,URINE SLIGHTLY-CLOUDY; BILIRUBIN,URINE NEGATIVE (NEGATIVE); GLUCOSE, URINE NEGATIVE (NEGATIVE); KETONES,URINE NEGATIVE (NEGATIVE); LEUKOCYTE ESTERASE,URINE NEGATIVE (NEGATIVE); NITRITE,URINE POSITIVE (NEGATIVE); PROTEIN,URINE NEGATIVE (NEGATIVE); URINE SPECIFIC GRAVITY 1.038; UROBILINOGEN,URINE NEGATIVE mg/dL (<2.0)
== END 2016-04-16 19:50 | disposition short-term general hospital (02) ==
LOC: ER 15:47
DX: K25.9 Gastric ulcer, unspecified as acute or chronic, without hemorrhage or perforation (principal); R10.10 Upper abdominal pain, unspecified; F17.200 Nicotine dependence, unspecified, uncomplicated; I10 Essential (primary) hypertension; I25.10 Atherosclerotic heart disease of native coronary artery without angina pectoris; E78.00 Pure hypercholesterolemia, unspecified; E11.9 Type 2 diabetes mellitus without complications; K21.9 Gastro-esophageal reflux disease without esophagitis; Z90.49 Acquired absence of other specified parts of digestive tract
CPT/HCPCS: 99291; 96361; 96375; 96365; 96368; 86900; 86901; 36415; 87040; 87086; 86850; 83690; 83735; 83930; 85025; 85610; 85730; 82272; 87088; 80076; 80048; 80053; 81001; 87186; 74177; C9113; J7030; S0164

== ENCOUNTER → 2016-04-16 | Outpatient (CLI) | payer MEDICARE ==
[2016-04-16 14:42] LABS: ABSOLUTE BASOPHILS # (AUTO) 0.1 10^3/uL (0.0-0.2); ABSOLUTE EOSINOPHILS # (AUTO) 0.2 10^3/uL (0.0-0.6); ABSOLUTE LYMPHOCYTES (AUTO) 5.7 10^3/uL (0.5-4.7); ABSOLUTE MONOCYTES (AUTO) 0.9 10^3/uL (0.1-1.4); ABSOLUTE NEUT (AUTO) 6.3 10^3/uL (1.7-8.2); BASOPHILS % (AUTO) 0.8 % (0-2); EOSINOPHILS % (AUTO) 1.4 % (0-6); HEMATOCRIT 31.7 % (36.0-47.0); HEMOGLOBIN 10.8 g/dL (12.0-15.5); HGB HCT DIFFERENCE 0.7; LYMPHOCYTES % (AUTO) 43.5 % (13-45); MEAN CORPUSCULAR HEMOGLOBIN 30.3 pg (27.0-33.4); MEAN CORPUSCULAR HGB CONC 33.9 g/dL (32.0-36.0); MEAN CORPUSCULAR VOLUME 89 fl (80-97); MONOCYTES % (AUTO) 6.5 % (3-13); RED BLOOD COUNT 3.55 10^6/uL (3.72-5.28); RED CELL DISTRIBUTION WIDTH 13.8 % (11.5-14.0); SEGMENTED NEUTROPHILS % (AUTO) 47.8 % (42-78); WHITE BLOOD COUNT 13.1 10^3/uL (4.0-10.5)
[2016-04-16 14:59] LABS: ALANINE AMINOTRANSFERASE 24 U/L (9-52); ALBUMIN 4.1 g/dL (3.5-5.0); ALKALINE PHOSPHATASE 72 U/L (38-126); ANION GAP 11 (5-19); ASPARTATE AMINO TRANSFERASE 15 U/L (14-36); BILIRUBIN,TOTAL 0.5 mg/dL (0.2-1.3); BLOOD UREA NITROGEN 11 mg/dL (7-20); CALCIUM 10.7 mg/dL (8.4-10.2); CARBON DIOXIDE 29 mmol/L (22-30); CHLORIDE 96 mmol/L (98-107); CREATININE RESULT 0.77 mg/dL (0.52-1.25); GLUCOSE 117 mg/dL (75-110); LIPASE 40.4 U/L (23-300); POTASSIUM 3.7 mmol/L (3.6-5.0); SODIUM 136.2 mmol/L (137-145); TOTAL PROTEIN 6.7 g/dL (6.3-8.2)
== END ==
LOC: RAD 14:09
PROVIDERS: ATTEND Family Medicine
DX: E87.1 Hypo-osmolality and hyponatremia (principal); R10.10 Upper abdominal pain, unspecified
CPT/HCPCS: 36415; 74177; 80048; 80076; 83690; 83930; 85025

== ENCOUNTER → 2016-09-29 | Outpatient (CLI) | payer MEDICARE ==
[2016-09-29 09:52] LABS: ABSOLUTE BASOPHILS # (AUTO) 0.1 10^3/uL (0.0-0.2); ABSOLUTE EOSINOPHILS # (AUTO) 0.3 10^3/uL (0.0-0.6); ABSOLUTE LYMPHOCYTES (AUTO) 3.5 10^3/uL (0.5-4.7); ABSOLUTE MONOCYTES (AUTO) 0.7 10^3/uL (0.1-1.4); ABSOLUTE NEUT (AUTO) 3.9 10^3/uL (1.7-8.2); BASOPHILS % (AUTO) 1.5 % (0-2); EOSINOPHILS % (AUTO) 3.1 % (0-6); HEMATOCRIT 33.5 % (36.0-47.0); HEMOGLOBIN 11.2 g/dL (12.0-15.5); HGB HCT DIFFERENCE 0.1; LYMPHOCYTES % (AUTO) 41.6 % (13-45); MEAN CORPUSCULAR HEMOGLOBIN 28.1 pg (27.0-33.4); MEAN CORPUSCULAR HGB CONC 33.5 g/dL (32.0-36.0); MEAN CORPUSCULAR VOLUME 84 fl (80-97); MONOCYTES % (AUTO) 8.2 % (3-13); RED BLOOD COUNT 3.99 10^6/uL (3.72-5.28); RED CELL DISTRIBUTION WIDTH 14.7 % (11.5-14.0); SEGMENTED NEUTROPHILS % (AUTO) 45.6 % (42-78); WHITE BLOOD COUNT 8.5 10^3/uL (4.0-10.5)
[2016-09-29 10:26] LABS: ALANINE AMINOTRANSFERASE 17 U/L (9-52); ALBUMIN 3.9 g/dL (3.5-5.0); ALKALINE PHOSPHATASE 63 U/L (38-126); ANION GAP 10 (5-19); ASPARTATE AMINO TRANSFERASE 12 U/L (14-36); BILIRUBIN,DIRECT 0.2 mg/dL (0.0-0.4); BILIRUBIN,TOTAL 0.5 mg/dL (0.2-1.3); BLOOD UREA NITROGEN 20 mg/dL (7-20); CALCIUM 9.8 mg/dL (8.4-10.2); CARBON DIOXIDE 25 mmol/L (22-30); CHLORIDE 106 mmol/L (98-107); CHOLESTEROL 182.47 mg/dL (0-200); CREATININE RESULT 1.06 mg/dL (0.52-1.25); Direct HDL 72 mg/dL (>40); GLUCOSE 101 mg/dL (75-110); POTASSIUM 4.7 mmol/L (3.6-5.0); SODIUM 141.4 mmol/L (137-145); TOTAL PROTEIN 7.1 g/dL (6.3-8.2); TRIGLYCERIDES 79 mg/dL (<150)
[2016-09-29 10:36] LABS: DIRECT LDL 85 mg/dL (<100)
[2016-09-29 12:53] LABS: FREE T3 3.85 pg/mL (2.77-5.27)
[2016-09-29 13:06] LABS: THYROID STIMULATING HORMONE 8.86 uIU/mL (0.47-4.68)
[2016-09-30 07:13] LABS: VITAMIN D 25-HYDROXY 32.5 ng/mL (30.0-100.0)
[2016-09-30 10:38] LABS: CREATININE URINE 27.8 mg/dL (Not Estab.); MICROALBUMIN URINE 3.3 ug/mL (Not Estab.)
== END ==
LOC: OD 08:50
PROVIDERS: ATTEND Family Medicine
DX: I73.89 Other specified peripheral vascular diseases (principal); E11.9 Type 2 diabetes mellitus without complications; E03.9 Hypothyroidism, unspecified; E53.8 Deficiency of other specified B group vitamins; E83.52 Hypercalcemia; Z79.899 Other long term (current) drug therapy
CPT/HCPCS: 36415; 80053; 80061; 82043; 82306; 82570; 82607; 83036; 83970; 84439; 84443; 84481; 85025

== ENCOUNTER → 2016-12-01 | Outpatient (CLI) | payer MEDICARE ==
[2016-12-01 12:22] LABS: ANION GAP 11 (5-19); BLOOD UREA NITROGEN 17 mg/dL (7-20); CARBON DIOXIDE 24 mmol/L (22-30); CHLORIDE 104 mmol/L (98-107); CREATININE RESULT 0.99 mg/dL (0.52-1.25); GLUCOSE 107 mg/dL (75-110); POTASSIUM 4.5 mmol/L (3.6-5.0); SODIUM 139.1 mmol/L (137-145)
== END ==
LOC: OD 10:00
PROVIDERS: ATTEND Family Medicine
DX: D50.0 Iron deficiency anemia secondary to blood loss (chronic) (principal); E03.9 Hypothyroidism, unspecified; I10 Essential (primary) hypertension
CPT/HCPCS: 36415; 80048; 82728; 83540; 83550; 84443

== ENCOUNTER → 2017-06-22 | Outpatient (CLI) | payer MEDICARE ==
[2017-06-22 11:30] LABS: ABSOLUTE BASOPHILS # (AUTO) 0.1 10^3/uL (0.0-0.2); ABSOLUTE EOSINOPHILS # (AUTO) 0.2 10^3/uL (0.0-0.6); ABSOLUTE LYMPHOCYTES (AUTO) 2.7 10^3/uL (0.5-4.7); ABSOLUTE MONOCYTES (AUTO) 0.6 10^3/uL (0.1-1.4); ABSOLUTE NEUT (AUTO) 4.4 10^3/uL (1.7-8.2); BASOPHILS % (AUTO) 1.6 % (0-2); EOSINOPHILS % (AUTO) 2.5 % (0-6); HEMATOCRIT 39.7 % (36.0-47.0); HEMOGLOBIN 13.5 g/dL (12.0-15.5); LYMPHOCYTES % (AUTO) 33.7 % (13-45); MEAN CORPUSCULAR HEMOGLOBIN 29.3 pg (27.0-33.4); MEAN CORPUSCULAR VOLUME 86 fl (80-97); MONOCYTES % (AUTO) 7.9 % (3-13); PLATELET COUNT 358 10^3/uL (150-450); RED BLOOD COUNT 4.62 10^6/uL (3.72-5.28); RED CELL DISTRIBUTION WIDTH 13.9 % (11.5-14.0); SEGMENTED NEUTROPHILS % (AUTO) 54.3 % (42-78); TOTAL CELLS COUNTED % (AUTO) 100 %; WHITE BLOOD COUNT 8.1 10^3/uL (4.0-10.5)
[2017-06-22 11:50] LABS: ALANINE AMINOTRANSFERASE 22 U/L (9-52); ALBUMIN 4.1 g/dL (3.5-5.0); ALKALINE PHOSPHATASE 65 U/L (38-126); ANION GAP 9 (5-19); ASPARTATE AMINO TRANSFERASE 12 U/L (14-36); BILIRUBIN,DIRECT 0.4 mg/dL (0.0-0.4); BILIRUBIN,TOTAL 0.4 mg/dL (0.2-1.3); BLOOD UREA NITROGEN 19 mg/dL (7-20); CALCIUM 10.2 mg/dL (8.4-10.2); CARBON DIOXIDE 28 mmol/L (22-30); CHLORIDE 103 mmol/L (98-107); CHOLESTEROL 230.14 mg/dL (0-200); GLUCOSE 142 mg/dL (75-110); IRON(TIBC) 72.8 ug/dL (37-170); SODIUM 140.4 mmol/L (137-145); TOTAL PROTEIN 7.3 g/dL (6.3-8.2); TRIGLYCERIDES 221 mg/dL (<150)
[2017-06-22 12:02] LABS: DIRECT LDL 116 mg/dL (<100)
[2017-06-22 12:07] LABS: FREE T3 4.76 pg/mL (2.77-5.27); FREE T4 (FREE THYROXINE) 1.3 ng/dL (0.78-2.19)
[2017-06-22 12:21] LABS: THYROID STIMULATING HORMONE 5.77 uIU/mL (0.47-4.68)
[2017-06-22 12:39] LABS: VLDL CHOLESTEROL 44.2 mg/dL (10-31)
[2017-06-23 11:40] LABS: CREATININE URINE 48.3 mg/dL (Not Estab.); MICROALBUMIN URINE 5.2 ug/mL (Not Estab.)
== END ==
LOC: OD 10:28
PROVIDERS: ATTEND Family Medicine
DX: E53.8 Deficiency of other specified B group vitamins (principal); I10 Essential (primary) hypertension; E03.9 Hypothyroidism, unspecified; D50.0 Iron deficiency anemia secondary to blood loss (chronic); E11.9 Type 2 diabetes mellitus without complications; Z79.899 Other long term (current) drug therapy
CPT/HCPCS: 36415; 80053; 80061; 82043; 82570; 82607; 82728; 83036; 83540; 83550; 84439; 84443; 84481; 85025

== ENCOUNTER → 2018-03-11 | Outpatient (CLI) | payer MEDICARE ==
[2018-03-11 10:38] LABS: ABSOLUTE BASOPHILS # (AUTO) 0.1 10^3/uL (0.0-0.2); ABSOLUTE EOSINOPHILS # (AUTO) 0.3 10^3/uL (0.0-0.6); ABSOLUTE LYMPHOCYTES (AUTO) 3.1 10^3/uL (0.5-4.7); ABSOLUTE MONOCYTES (AUTO) 0.5 10^3/uL (0.1-1.4); ABSOLUTE NEUT (AUTO) 3.8 10^3/uL (1.7-8.2); BASOPHILS % (AUTO) 1.3 % (0-2); HEMATOCRIT 36.9 % (36.0-47.0); HEMOGLOBIN 12.8 g/dL (12.0-15.5); LYMPHOCYTES % (AUTO) 39.7 % (13-45); MEAN CORPUSCULAR HEMOGLOBIN 29.8 pg (27.0-33.4); MEAN CORPUSCULAR HGB CONC 34.8 g/dL (32.0-36.0); MEAN CORPUSCULAR VOLUME 86 fl (80-97); MONOCYTES % (AUTO) 6.8 % (3-13); PLATELET COUNT 332 10^3/uL (150-450); RED BLOOD COUNT 4.31 10^6/uL (3.72-5.28); RED CELL DISTRIBUTION WIDTH 13.3 % (11.5-14.0); SEGMENTED NEUTROPHILS % (AUTO) 48.2 % (42-78); TOTAL CELLS COUNTED % (AUTO) 100 %; WHITE BLOOD COUNT 7.8 10^3/uL (4.0-10.5)
[2018-03-11 10:50] LABS: ALANINE AMINOTRANSFERASE 8 U/L (9-52); ALBUMIN 3.6 g/dL (3.5-5.0); ALKALINE PHOSPHATASE 72 U/L (38-126); ANION GAP 5 (5-19); ASPARTATE AMINO TRANSFERASE 11 U/L (14-36); BILIRUBIN,DIRECT 0.2 mg/dL (0.0-0.4); BILIRUBIN,TOTAL 0.5 mg/dL (0.2-1.3); BLOOD UREA NITROGEN 21 mg/dL (7-20); CALCIUM 10.1 mg/dL (8.4-10.2); CARBON DIOXIDE 28 mmol/L (22-30); CHLORIDE 107 mmol/L (98-107); GLUCOSE 135 mg/dL (75-110); IRON(TIBC) 89.4 ug/dL (37-170); POTASSIUM 4.5 mmol/L (3.6-5.0); SODIUM 140.2 mmol/L (137-145); TOTAL PROTEIN 6.5 g/dL (6.3-8.2)
[2018-03-11 11:06] LABS: FREE T3 3.81 pg/mL (2.77-5.27); FREE T4 (FREE THYROXINE) 1.26 ng/dL (0.78-2.19)
[2018-03-11 11:19] LABS: THYROID STIMULATING HORMONE 5.31 uIU/mL (0.47-4.68)
[2018-03-13 03:36] LABS: CREATININE URINE 43.3 mg/dL (Not Estab.); MICROALBUMIN URINE <3.0 ug/mL (Not Estab.)
[2018-03-13 14:56] LABS: CHOLESTEROL 137.48 mg/dL (0-200); TRIGLYCERIDES 114 mg/dL (<150)
[2018-03-13 15:06] LABS: DIRECT LDL 68 mg/dL (<100)
== END ==
LOC: OD 09:16
PROVIDERS: ATTEND Family Medicine
DX: K26.7 Chronic duodenal ulcer without hemorrhage or perforation (principal); E53.8 Deficiency of other specified B group vitamins; E03.9 Hypothyroidism, unspecified; D50.0 Iron deficiency anemia secondary to blood loss (chronic); E11.9 Type 2 diabetes mellitus without complications
CPT/HCPCS: 36415; 80053; 80061; 82043; 82570; 82607; 83036; 83540; 83550; 84439; 84443; 84481; 85025

== ENCOUNTER → 2018-03-13 | Outpatient (CLI) | payer MEDICARE ==
--- NOTE | 2018-03-13 14:42 | RADIOLOGY REPORT (SQ) ---
EXAM DESCRIPTION: CHEST PA/LATERAL COMPLETED DATE/TIME: 03/13/2018 2:33 pm REASON FOR STUDY: COUGH COMPARISON: 12/03/2011 EXAM PARAMETERS: NUMBER OF VIEWS: 2 TECHNIQUE: Digital Frontal and Lateral radiographic views of the chest acquired. RADIATION DOSE: NA LIMITATIONS: none FINDINGS: LUNGS AND PLEURA: Parenchymal opacity at the left base. Right lung is clear. MEDIASTINUM AND HILAR STRUCTURES: No masses or contour abnormalities. HEART AND VASCULAR STRUCTURES: Heart normal size. No evidence for failure. BONES: No acute findings. HARDWARE: None in the chest. OTHER: No other significant finding. IMPRESSION: Left lower lobe pneumonia. TECHNICAL DOCUMENTATION: JOB ID: [id number] [employer]- All Rights Reserved Reading location - IP/workstation name: [email or web address]
== END ==
LOC: OD 14:10
PROVIDERS: ATTEND Family Medicine
DX: R05 Cough (principal); J18.9 Pneumonia, unspecified organism
CPT/HCPCS: 71046

== ENCOUNTER → 2018-03-18 | Outpatient (CLI) | payer MEDICARE ==
--- NOTE | 2018-03-18 11:10 | RADIOLOGY REPORT (SQ) ---
EXAM DESCRIPTION: MRI HEAD WITHOUT COMPLETED DATE/TIME: 03/18/2018 10:57 am REASON FOR STUDY: FACIAL WEAKNESS R29.810 FACIAL WEAKNESS COMPARISON: None. TECHNIQUE: Multiplanar imaging includes non-contrasted T1, T2, FLAIR, and diffusion with ADC map seq uences. Images stored on PACS. LIMITATIONS: None. FINDINGS: ANATOMY: No anomalies. Normal vascular flow voids. Pituitary fossa normal. CSF SPACES: Generally age-appropriate. Slight ventricular asymmetry is probably physiologic. No fra nk hydrocephalus. CEREBRUM: High signal intensity lesions scattered throughout the white matter on FLAIR imaging with d istribution suggesting micro-vascular ischemic changes. No evidence of hemorrhage, mass, or extraaxi al fluid collection. POSTERIOR FOSSA: Mild fluid in the mastoid air cells, right greater than left. Cerebellum and upper brainstem intact. IAC's unremarkable. DIFFUSION IMAGING: Negative for acute or sub-acute infarction. ORBITS: No masses. Globes normal. PARANASAL SINUSES: Chronic left maxillary mucosal thickening. No fluid. OTHER: No other significant finding. IMPRESSION: 1. Mild mastoid disease, right greater than left. Small effusions. 2. Chronic appearing small vessel disease. 3. Chronic appearing left maxillary sinus disease. No acute sinusitis suspected. EVIDENCE OF ACUTE STROKE: NO. TECHNICAL DOCUMENTATION: JOB ID: [id number] [employer]- All Rights Reserved Reading location - IP/workstation name: [email or web address]
== END ==
LOC: RAD 09:42
PROVIDERS: ATTEND Family Medicine
DX: R29.810 Facial weakness (principal); H74.93 Unspecified disorder of middle ear and mastoid, bilateral; J32.0 Chronic maxillary sinusitis
CPT/HCPCS: 70551

== ENCOUNTER → 2018-07-10 | Outpatient (CLI) | payer MEDICARE ==
[2018-07-10 10:58] LABS: ALANINE AMINOTRANSFERASE 19 U/L (9-52); ALBUMIN 3.8 g/dL (3.5-5.0); ALKALINE PHOSPHATASE 82 U/L (38-126); ANION GAP 11 (5-19); ASPARTATE AMINO TRANSFERASE 13 U/L (14-36); BILIRUBIN,DIRECT 0.3 mg/dL (0.0-0.4); BILIRUBIN,TOTAL 0.5 mg/dL (0.2-1.3); BLOOD UREA NITROGEN 20 mg/dL (7-20); CALCIUM 10.4 mg/dL (8.4-10.2); CARBON DIOXIDE 25 mmol/L (22-30); CHLORIDE 103 mmol/L (98-107); GLUCOSE 162 mg/dL (75-110); POTASSIUM 4.3 mmol/L (3.6-5.0); SODIUM 138.7 mmol/L (137-145); TOTAL PROTEIN 6.9 g/dL (6.3-8.2)
== END ==
LOC: OD 09:51
PROVIDERS: ATTEND Family Medicine
DX: E11.9 Type 2 diabetes mellitus without complications (principal)
CPT/HCPCS: 36415; 80053

== ENCOUNTER → 2018-07-25 | Outpatient (CLI) | payer MEDICARE ==
--- NOTE | 2018-07-25 13:54 | WOMENS IMAGING REPORT ---
EXAM DESCRIPTION: BONE DENSITY HIP/SPINE COMPLETED DATE/TIME: 07/25/2018 1:37 pm REASON FOR STUDY: Z12.39 ROUTINE 3D BILATERAL SCREENING, Z78.0 ASYMPTOMATIC MENOPAUSAL STATE Z78.0 ASYMPTOMATIC MENOPAUSAL STATE Z12.31 ENCNTR SCREEN MAMMOGRAM FOR MALIGNANT NEOPLASM OF JORGE COMPARISON: None. TECHNIQUE: Dual-Energy X-ray Absorptiometry (DEXA) of the AP Spine and Hip. LIMITATIONS: None. FINDINGS: LUMBAR SPINE: The bone mineral density (BMD) measured from L1-L4 in the AP projection correlates with a T-score of -1.9, which is osteopenia as defined by the World Health Organization. HIP: The bone mineral density (BMD) measured in the left hip correlates with a T-score of -2.3 in the femo ral neck, which is osteopenia as defined by the World Health Organization. IMPRESSION: 1. LUMBAR SPINE: Osteopenia 2. HIP: Osteopenia COMMENT: The patient has a 21% 10 year risk of major osteoporotic fracture. Her 10 year risk of hip fracture is 7.5%. The World Health Organization defines low BMD as follows: T-score: Normal: Greater than -1.0 Osteopenia: Between -1.0 and -2.5 Osteoporosis: Less than -2.5 without fractures Established osteoporosis: Less than -2.5 with fractures In general, you may wish to consider: Diagnosis Treatment Follow-up DEXA Normal BMD Prevention 2-3 years Osteopenia Prevention/Therapy 1-2 years Osteoporosis Therapy Yearly TECHNICAL DOCUMENTATION: JOB ID: [id number] [employer]- All Rights Reserved Reading location - IP/workstation name: [email or web address]
--- NOTE | 2018-07-25 14:00 | WOMENS IMAGING REPORT ---
EXAM DESCRIPTION: 3D SCREENING MAMMO BILAT COMPLETED DATE/TIME: 07/25/2018 1:48 pm REASON FOR STUDY: Z12.31 ROUTINE 3D BILATERAL SCREENING Z78.0 ASYMPTOMATIC MENOPAUSAL STATE Z12.31 ENCNTR SCREEN MAMMOGRAM FOR MALIGNANT NEOPLASM OF JORGE COMPARISON: Multiple since 2008 TECHNIQUE: Standard craniocaudal and mediolateral oblique views of each breast recorded using digita l acquisition and breast tomosynthesis. LIMITATIONS: None. FINDINGS: Findings present which are benign by mammographic criteria. No suspicious masses, calcific ations or architectural distortion. Pertinent benign findings: Stable bilateral breast parenchymal calcifications. Read with the assistance of CAD. .[facility] - R2 Spr[employer] Painter Version 9.2 Benign mammographic findings may include one or more of the following: Smooth masses, popcorn/rim/coa rse calcifications, asymmetries, post-procedure changes, and lesions with long-standing stability. IMPRESSION: Assessment: BENIGN MAMMOGRAPHIC FINDINGS. BIRADS 2 BREAST DENSITY: b. There are scattered areas of fibroglandular density. BIRAD: 2 BENIGN FINDING(S) RECOMMENDATION: ROUTINE SCREENING COMMENT: The patient has been notified of the results by letter per MQSA requirements. Additional no tification policies are in place for contacting patient with suspicious or incomplete findings. Quality ID #[id number]: The [employer] recommends an annual screening mammogram for women aged 40 years or over. This facility utilizes a reminder system to ensure that all patients receive reminder letters, and/or direct phone calls for appointments. This includes reminders for routine scr eening mammograms, diagnostic mammograms, or other Breast Imaging Interventions when appropriate. Th is patient will be placed in the appropriate reminder system. TECHNICAL DOCUMENTATION: FINDING NUMBER: (1) ASSESSMENT: (1) JOB ID: [id number] [employer]- All Rights Reserved Reading location - IP/workstation name: [email or web address]-RR
== END ==
LOC: WI 13:10
PROVIDERS: ATTEND Family Medicine
DX: Z78.0 Asymptomatic menopausal state (principal); Z12.31 Encounter for screening mammogram for malignant neoplasm of breast
CPT/HCPCS: 77063; 77067; 77080

== ENCOUNTER → 2018-10-05 | Outpatient (CLI) | payer MEDICARE ==
[2018-10-05 09:19] LABS: ABSOLUTE BASOPHILS # (AUTO) 0.1 10^3/uL (0.0-0.2); ABSOLUTE EOSINOPHILS # (AUTO) 0.3 10^3/uL (0.0-0.6); ABSOLUTE LYMPHOCYTES (AUTO) 3.1 10^3/uL (0.5-4.7); ABSOLUTE MONOCYTES (AUTO) 0.7 10^3/uL (0.1-1.4); ABSOLUTE NEUT (AUTO) 4.2 10^3/uL (1.7-8.2); BASOPHILS % (AUTO) 1.2 % (0-2); EOSINOPHILS % (AUTO) 3.2 % (0-6); HEMATOCRIT 36.1 % (36.0-47.0); HEMOGLOBIN 12.2 g/dL (12.0-15.5); LYMPHOCYTES % (AUTO) 37.4 % (13-45); MEAN CORPUSCULAR HEMOGLOBIN 29.4 pg (27.0-33.4); MEAN CORPUSCULAR HGB CONC 33.9 g/dL (32.0-36.0); MEAN CORPUSCULAR VOLUME 87 fl (80-97); PLATELET COUNT 322 10^3/uL (150-450); RED BLOOD COUNT 4.16 10^6/uL (3.72-5.28); RED CELL DISTRIBUTION WIDTH 13.9 % (11.5-14.0); SEGMENTED NEUTROPHILS % (AUTO) 50.2 % (42-78); TOTAL CELLS COUNTED % (AUTO) 100 %; WHITE BLOOD COUNT 8.3 10^3/uL (4.0-10.5)
[2018-10-05 09:26] LABS: APPEARANCE,URINE CLEAR; BILIRUBIN,URINE NEGATIVE (NEGATIVE); COLOR,URINE STRAW; GLUCOSE, URINE NEGATIVE (NEGATIVE); KETONES,URINE NEGATIVE (NEGATIVE); LEUKOCYTE ESTERASE,URINE NEGATIVE (NEGATIVE); NITRITE,URINE NEGATIVE (NEGATIVE); PROTEIN,URINE NEGATIVE (NEGATIVE); URINE SPECIFIC GRAVITY 1.005; UROBILINOGEN,URINE NEGATIVE mg/dL (<2.0)
--- NOTE | 2018-10-05 09:48 | RADIOLOGY REPORT (SQ) ---
EXAM DESCRIPTION: CHEST PA/LATERAL COMPLETED DATE/TIME: 10/05/2018 9:09 am REASON FOR STUDY: OTHER NONSPECIFIC ABNORMAL FINDING OF LUNG FIELD COMPARISON: 03/13/2018. EXAM PARAMETERS: NUMBER OF VIEWS: two views TECHNIQUE: Digital Frontal and Lateral radiographic views of the chest acquired. RADIATION DOSE: NA LIMITATIONS: none FINDINGS: LUNGS AND PLEURA: Chronic interstitial changes. No focal infiltrates, masses or pneumotho rax. No pleural effusion. MEDIASTINUM AND HILAR STRUCTURES: No masses or contour abnormalities. HEART AND VASCULAR STRUCTURES: Heart normal size. No evidence for failure. BONES: No acute findings. HARDWARE: None in the chest. OTHER: No other significant finding. IMPRESSION: CHRONIC SCARRING. NO ACUTE RADIOGRAPHIC FINDING IN THE CHEST. TECHNICAL DOCUMENTATION: JOB ID: [id number] [employer]- All Rights Reserved Reading location - IP/workstation name: [email or web address]
[2018-10-05 09:51] LABS: CHOLESTEROL 139.53 mg/dL (0-200); IRON(TIBC) 57.9 ug/dL (37-170); TRIGLYCERIDES 121 mg/dL (<150)
[2018-10-05 10:04] LABS: DIRECT LDL 52 mg/dL (<100)
[2018-10-05 10:11] LABS: FREE T3 4.22 pg/mL (2.77-5.27); FREE T4 (FREE THYROXINE) 1.16 ng/dL (0.78-2.19)
[2018-10-05 10:24] LABS: THYROID STIMULATING HORMONE 6.04 uIU/mL (0.47-4.68)
[2018-10-06 12:36] LABS: CREATININE URINE 20.1 mg/dL (Not Estab.)
[2018-10-06 14:02] LABS: MICROALBUMIN URINE <3.0 ug/mL (Not Estab.)
== END ==
LOC: OD 08:43
PROVIDERS: ATTEND Family Medicine
DX: E03.9 Hypothyroidism, unspecified (principal); D50.0 Iron deficiency anemia secondary to blood loss (chronic); E11.9 Type 2 diabetes mellitus without complications; N39.41 Urge incontinence; R91.8 Other nonspecific abnormal finding of lung field
CPT/HCPCS: 36415; 71046; 80061; 81001; 82043; 82570; 83036; 83540; 83550; 84439; 84443; 84481; 85025

== ENCOUNTER → 2019-07-25 | Outpatient (CLI) | payer MEDICARE ==
[2019-07-25 10:29] LABS: ABSOLUTE BASOPHILS # (AUTO) 0.1 10^3/uL (0.0-0.2); ABSOLUTE EOSINOPHILS # (AUTO) 0.3 10^3/uL (0.0-0.6); ABSOLUTE LYMPHOCYTES (AUTO) 2.9 10^3/uL (0.5-4.7); ABSOLUTE MONOCYTES (AUTO) 0.7 10^3/uL (0.1-1.4); ABSOLUTE NEUT (AUTO) 3.8 10^3/uL (1.7-8.2); BASOPHILS % (AUTO) 1.2 % (0-2); EOSINOPHILS % (AUTO) 3.7 % (0-6); HEMATOCRIT 35.9 % (36.0-47.0); HEMOGLOBIN 12.6 g/dL (12.0-15.5); LYMPHOCYTES % (AUTO) 37.2 % (13-45); MEAN CORPUSCULAR HEMOGLOBIN 30.4 pg (27.0-33.4); MEAN CORPUSCULAR HGB CONC 35.1 g/dL (32.0-36.0); MEAN CORPUSCULAR VOLUME 87 fl (80-97); MONOCYTES % (AUTO) 8.4 % (3-13); PLATELET COUNT 256 10^3/uL (150-450); RED BLOOD COUNT 4.15 10^6/uL (3.72-5.28); RED CELL DISTRIBUTION WIDTH 13.4 % (11.5-14.0); SEGMENTED NEUTROPHILS % (AUTO) 49.5 % (42-78); TOTAL CELLS COUNTED % (AUTO) 100 %; WHITE BLOOD COUNT 7.7 10^3/uL (4.0-10.5)
[2019-07-25 11:01] LABS: ALBUMIN 3.8 g/dL (3.5-5.0); ALKALINE PHOSPHATASE 79 U/L (38-126); ANION GAP 8 (5-19); ASPARTATE AMINO TRANSFERASE 15 U/L (14-36); BILIRUBIN,TOTAL 0.4 mg/dL (0.2-1.3); BLOOD UREA NITROGEN 26 mg/dL (7-20); CALCIUM 9.4 mg/dL (8.4-10.2); CARBON DIOXIDE 22 mmol/L (22-30); CHLORIDE 108 mmol/L (98-107); CHOLESTEROL 128.13 mg/dL (0-200); GLUCOSE 141 mg/dL (75-110); IRON(TIBC) 101.4 ug/dL (37-170); POTASSIUM 4.5 mmol/L (3.6-5.0); TRIGLYCERIDES 171 mg/dL (<150)
[2019-07-25 11:12] LABS: DIRECT LDL 49 mg/dL (<100)
[2019-07-25 11:17] LABS: FREE T3 4.04 pg/mL (2.77-5.27); FREE T4 (FREE THYROXINE) 1.25 ng/dL (0.78-2.19)
[2019-07-25 11:31] LABS: THYROID STIMULATING HORMONE 5.43 uIU/mL (0.47-4.68)
[2019-07-25 11:53] LABS: VLDL CHOLESTEROL 34.2 mg/dL (10-31)
[2019-07-26 10:36] LABS: CREATININE URINE 39.6 mg/dL (Not Estab.)
[2019-07-26 10:54] LABS: MICROALBUMIN URINE <3.0 ug/mL (Not Estab.)
== END ==
LOC: OD 09:12
PROVIDERS: ATTEND Family Medicine
DX: E53.8 Deficiency of other specified B group vitamins (principal); I10 Essential (primary) hypertension; E03.9 Hypothyroidism, unspecified; D50.0 Iron deficiency anemia secondary to blood loss (chronic); E55.9 Vitamin D deficiency, unspecified; E11.9 Type 2 diabetes mellitus without complications; E78.5 Hyperlipidemia, unspecified
CPT/HCPCS: 36415; 80053; 80061; 82043; 82306; 82570; 82607; 82728; 83036; 83540; 83550; 84439; 84443; 84481; 85025

== ENCOUNTER → 2020-02-13 | Outpatient (CLI) | payer MEDICARE ==
[2020-02-13 12:56] LABS: ABSOLUTE BASOPHILS # (AUTO) 0.1 10^3/uL (0.0-0.2); ABSOLUTE EOSINOPHILS # (AUTO) 0.6 10^3/uL (0.0-0.6); ABSOLUTE LYMPHOCYTES (AUTO) 3.4 10^3/uL (0.5-4.7); ABSOLUTE MONOCYTES (AUTO) 0.7 10^3/uL (0.1-1.4); ABSOLUTE NEUT (AUTO) 4.8 10^3/uL (1.7-8.2); BASOPHILS % (AUTO) 1.4 % (0-2); EOSINOPHILS % (AUTO) 6.1 % (0-6); HEMATOCRIT 35.6 % (36.0-47.0); HEMOGLOBIN 12.1 g/dL (12.0-15.5); LYMPHOCYTES % (AUTO) 35.5 % (13-45); MEAN CORPUSCULAR HEMOGLOBIN 29.6 pg (27.0-33.4); MEAN CORPUSCULAR HGB CONC 33.9 g/dL (32.0-36.0); MEAN CORPUSCULAR VOLUME 87 fl (80-97); MONOCYTES % (AUTO) 7.2 % (3-13); PLATELET COUNT 287 10^3/uL (150-450); RED BLOOD COUNT 4.07 10^6/uL (3.72-5.28); RED CELL DISTRIBUTION WIDTH 13.5 % (11.5-14.0); SEGMENTED NEUTROPHILS % (AUTO) 49.8 % (42-78); TOTAL CELLS COUNTED % (AUTO) 100 %; WHITE BLOOD COUNT 9.7 10^3/uL (4.0-10.5)
[2020-02-13 13:27] LABS: ALBUMIN 4.1 g/dL (3.5-5.0); ALKALINE PHOSPHATASE 74 U/L (38-126); ANION GAP 10 (5-19); ASPARTATE AMINO TRANSFERASE 17 U/L (14-36); BILIRUBIN,DIRECT 0.1 mg/dL (0.0-0.4); BILIRUBIN,TOTAL 0.5 mg/dL (0.2-1.3); BLOOD UREA NITROGEN 23 mg/dL (7-20); CALCIUM 9.9 mg/dL (8.4-10.2); CARBON DIOXIDE 25 mmol/L (22-30); CHLORIDE 104 mmol/L (98-107); GLUCOSE 124 mg/dL (75-110); POTASSIUM 4.5 mmol/L (3.6-5.0); TOTAL PROTEIN 7.2 g/dL (6.3-8.2)
[2020-02-13 13:37] LABS: FREE T4 (FREE THYROXINE) 1.26 ng/dL (0.78-2.19)
[2020-02-13 13:51] LABS: THYROID STIMULATING HORMONE 5.26 uIU/mL (0.47-4.68)
[2020-02-14 13:37] LABS: CREATININE URINE 33.9 mg/dL (Not Estab.)
== END ==
LOC: OD 12:04
PROVIDERS: ATTEND Family Medicine
DX: E03.9 Hypothyroidism, unspecified (principal); E11.9 Type 2 diabetes mellitus without complications; D50.0 Iron deficiency anemia secondary to blood loss (chronic)
CPT/HCPCS: 36415; 80053; 82043; 82570; 83036; 84439; 84443; 85025